=== PATIENT | female | born 1995 | race Caucasian/White ===

== ENCOUNTER 2022-11-24 06:34 | Outpatient (OUT) | payer OTHER, SELFPAY ==
--- NOTE | 2022-11-24 06:42 | XR_ITS ---
The [address] [address] Patient Name: JEANETH ZAMORA MRN: [id number] date: 1995 Sex: F Assigned Patient Location: [facility] Current Patient Location: [facility] Accession/Order Number: [id number] Exam Date: 11/24/2022 06:45 Report Date: 11/24/2022 08:32 At the request of: NON-STAFF PHYSICIAN Procedure: XR finger LT min 2V PROCEDURE: XR finger LT min 2V COMPARISON: None. HISTORY: Left index finger pain M79.645 FINDINGS: BONES:No fracture, acute abnormality, or significant arthropathy. SOFT TISSUES:Negative. No visible soft tissue swelling. EFFUSION:None visible. OTHER: Negative. IMPRESSION: No acute radiographic abnormality Electronically authenticated by: WILFRID LANCE Date: 11/24/2022 08:32
== END 2022-11-24 06:35 ==
DX: M79.645 Pain in left finger(s) (principal)
CPT/HCPCS: 73140